=== PATIENT | male | born 1985 | race Hispanic/Latino ===

== ENCOUNTER 2018-10-27 18:03 | Emergency (ER) | payer BC ==
[2018-10-27] MEDS ORDERED: ACETAMINOPHEN EXTRA STRENGTH 500 MG TABLET ONE (18:26)
[2018-10-27 18:42] LABS: BASOPHILS % (AUTO) 0.4 % (0.0-5.0); EOSINOPHILS % (AUTO) 0.3 % (0.0-8.0); LYMPHOCYTES % (AUTO) 5.2 % (21.0-51.0); MEAN CORPUSCULAR HEMOGLOBIN 28.1 pg (27.0-33.0); MEAN CORPUSCULAR HGB CONC 33.2 g/dL (32.0-36.0); MEAN CORPUSCULAR VOLUME 84.6 fL (79-99); MONOCYTES % (AUTO) 5.7 % (3.0-13.0); NEUTROPHILS % (AUTO) 88.4 % (40.0-77.0); PLATELET COUNT (AUTO) 309 K/uL (130-400); RED BLOOD CELL COUNT(AUTO) 4.84 MIL/uL (4.50-6.20); RED CELL DISTRIBUTION WIDTH 12.8 % (11.0-15.5); WHITE BLOOD COUNT (AUTO) 11.4 K/uL (4.8-10.8)
[2018-10-27 19:13] LABS: CREATININE 1.2 mg/dL (0.5-1.5); POTASSIUM 3.5 mmol/L (3.5-5.1)
[2018-10-27 19:15] LABS: BILIRUBIN,TOTAL 1.6 mg/dL (0.2-1.0); TOTAL PROTEIN, SERUM 8.3 g/dL (6.0-8.3)
[2018-10-27 19:27] LABS: APPEARANCE,URINE Clear (CLEAR); BILIRUBIN,URINE Negative (NEGATIVE); COLOR,URINE Yellow (YELLOW); GLUCOSE, URINE (UA) Negative (NEGATIVE); KETONES,URINE Negative (NEGATIVE); LEUKOCYTE ESTERASE ,URINE Negative (NEGATIVE); NITRATE,URINE Negative (NEGATIVE); OCCULT BLOOD,URINE Moderate (NEGATIVE); PROTEIN,URINE Negative (NEGATIVE)
[2018-10-27 19:50] LABS: BACTERIA,URINE None Seen /HPF (None Seen); SQUAMOUS EPITHELIAL CELL,UR None Seen /HPF (0-2); WBC,URINE None Seen /HPF (0-1)
[2018-10-27] MEDS ORDERED: METRONIDAZOLE 500 MG TABLET ONE (20:56)
[2018-10-27] MEDS ORDERED: LEVOFLOXACIN 500 MG TABLET ONE (20:56)
[2018-10-27] MEDS ORDERED: SODIUM CHLORIDE 0.9% 1000ML 1,000 ML IV ONE (20:56)
[2018-10-27] MEDS ORDERED: KETOROLAC TROMETHAMINE 30MG/ML ONE (20:56)
== END 2018-10-27 22:54 | disposition home or self-care (01) ==
LOC: EDH 18:03
DX: K57.32 Diverticulitis of large intestine without perforation or abscess without bleeding (principal); R50.9 Fever, unspecified; R19.7 Diarrhea, unspecified; Z98.890 Other specified postprocedural states
CPT/HCPCS: 36415; 74178; 80053; 81001; 82150; 83690; 85025; 96361; 96374; 99285; J1885; J7030

== ENCOUNTER 2021-06-22 03:52 | Emergency (ER) | payer BC ==
[~2021-06-22] VITALS: Ht 172.7 cm; Wt 77.1 kg
[2021-06-22] MEDS ORDERED: DiphenhydrAMINE HCL 50 MG/ML VIAL IV ONE (05:00)
[2021-06-22] MEDS ORDERED: LORAZEPAM 2 MG/ML 1 ML VIAL IVP ONE (05:00)
[2021-06-22] MEDS ORDERED: HALOPERIDOL INJ 5 MG/ML VIAL IM SCH (05:00)
[2021-06-22] MEDS ORDERED: 0.9%NACL 1000ML 1,000 ML IV ONE (05:00)
[2021-06-22 06:50] VITALS: BP 138/88
== END 2021-06-22 06:52 | disposition home or self-care (01) ==
LOC: EDH 03:52
DX: R51.9 Headache, unspecified (principal); I10 Essential (primary) hypertension; Z79.899 Other long term (current) drug therapy
CPT/HCPCS: 70450; 96361; 96372; 96374; 96375; 99284; J1200; J1630; J2060; J7030